=== PATIENT | male | born 1995 | race Caucasian/White ===

== ENCOUNTER 2018-12-01 16:04 | Emergency (ER) | payer OTHER ==
[~2018-12-01] VITALS: Ht 185.4 cm; Wt 102.1 kg
[2018-12-01 16:10] VITALS: BP 138/72
--- NOTE | 2018-12-01 16:10 | NUR ---
ED Nurse Note: PT WALKED IN TO ER TODAY FROM HOME. AOX4. PT C/O NONRADIATING MEDIAL LOWER BACK PAIN, 07/05, DESCRIBED ACHING X 6 DAYS AGO. PT DENIES ANY NUMBNESS OR TINGLING OF EXTREMITIES. CIRCULATION AND SENSATION INTACT. CAP REFILL <3 SECONDS. FULL ROM OF BACK BUT PAIN EXACERBATED BY MOVEMENT.
[2018-12-01] MEDS ORDERED: LOSARTAN POTASS25 MG ORAL (16:20)
[2018-12-01] MEDS ORDERED: ALLOPURINOL100 M1 ORAL (16:20)
--- NOTE | 2018-12-01 16:31 | Emergency Room Report ---
History of Present Illness General Chief Complaint: Lower Back Pain or Injury Source: Patient Present Illness HPI 23-year-old male with no significant past medical history other than hypertension and gout currently controlled with losartan and albuterol as well as indomethacin for acute attacks here complaining of low back pain after lifting heavy furniture at work 6 days ago. She has been sent by work to be evaluated. She denies any fall or injury. Eating the pain intermittently and 5 out of 10 increased when changing position. Denies urinary and bowel incontinence as well as saddle paresthesia. She has been taking Profen with relief for the pain. Denies all other injury, chest pain, SOB, abdominal pain, palpitations, urinary symptoms. Allergies: Coded Allergies: No Known Allergies (Unverified , 12/01/18) Patient History Past Medical History: see triage record Past Surgical History: none Pertinent Family History: none Immunizations: UTD Reviewed Nursing Documentation: PMH: Agreed; PSxH: Agreed Nursing Documentation-PMH Past Medical History: No Stated History Review of Systems All Other Systems: negative except mentioned in HPI Physical Exam Vital Signs Date Time Temp Pulse Resp B/P (MAP) Pulse Ox O2 Delivery O2 Flow Rate FiO2 12/01/18 16:07 98.2 86 18 143/69 95 Room Air Sp02 EP Interpretation: reviewed, normal General Appearance: normal inspection, well appearing, no apparent distress, alert Head: normocephalic, atraumatic Eyes: bilateral eye normal inspection, bilateral eye PERRL ENT: normal ENT inspection, normal pharynx Neck: normal inspection, full range of motion, supple Respiratory: normal inspection, lungs clear, no rhonchi, no retraction, no wheezing Cardiovascular #1: normal inspection, regular rate, rhythm, no edema, no murmur Gastrointestinal: normal inspection, non tender, soft Rectal: deferred Genitourinary: deferred Musculoskeletal: digits/nails normal, gait/station normal, normal range of motion, non-tender, other - muscle spasm over lumbar region. No bony tenderness Neurologic: normal inspection, alert, oriented x3 Psychiatric: normal inspection, judgement/insight normal Skin: normal inspection, normal color, no rash Lymphatic: normal inspection, no adenopathy Medical Decision Making PA Attestation All diagnoses and treatment plans are reviewed and discussed with my supervising physician Dr. Tamayo Diagnostic Impression: Primary Impression: Low back strain Additional Impression: Muscle spasm ER Course 23-year-old male with no significant past medical history other than hypertension and gout currently controlled with losartan and albuterol as well as indomethacin for acute attacks here complaining of low back pain after lifting heavy furniture at work 6 days ago. She has been sent by work to be evaluated. She denies any fall or injury. Eating the pain intermittently and 5 out of 10 increased when changing position. Denies urinary and bowel incontinence as well as saddle paresthesia. She has been taking Profen with relief for the pain. Denies all other injury, chest pain, SOB, abdominal pain, palpitations, urinary symptoms. Ddx considered but are not limited to lumbar strain, muscle spasm, lumbar sprain , lumbar fracture Vital signs: are WNL, pt. is afebrile H&PE are most consistent with versus strain and muscle spasm ORDERS: Robaxin, Voltaren gel ED INTERVENTIONS: None required at this time. DISCHARGE: At this time pt. is stable for d/c to home. Will provide printed patient care instructions, and any necessary prescriptions. Care plan and follow up instructions have been discussed with the patient prior to discharge. PT has been explained that x-ray is not needed as patient did not fall patient agrees and reports he is very taking indomethacin for acute gout and does not want any other anti-inflammatories he is okay with a course of treatment with Robaxin and Voltaren gel paperwork has been filled out for Worker's Comp. Rice currently been explained to the patient and patient is asked to avoid strenuous physical activity Last Vital Signs Date Time Temp Pulse Resp B/P (MAP) Pulse Ox O2 Delivery O2 Flow Rate FiO2 12/01/18 16:10 98.4 82 16 138/72 98 Room Air Disposition: HOME, SELF-CARE Condition: Stable Scripts Diclofenac Sodium (VOLTAREN) 100 Gm Gel..gram. 2 GM TP TID, #100 GM Prov: Gonzalo Carmen 12/01/18 Methocarbamol* (ROBAXIN*) 500 Mg Tablet 500 MG PO BID, #14 TAB 0 Refills Prov: Gonzalo Carmen 12/01/18 Patient Instructions: Lumbosacral Strain, Back Pain, Adult Additional Instructions: take medication as directed, alternating between icing and heating the affected area, avoid strenuous physical activity, avoid lifting heavy objects, follow with her primary care provider if pain continues or if any tingling or numbness. As further imaging may be needed. No imaging at this time as there was no injury or fall. Gonzalo Carmen Dec 01, 2018 16:31
[2018-12-01] MEDS ORDERED: ROBAXIN500 MG PO (16:33)
[2018-12-01] MEDS ORDERED: VOLTAREN100 G1 TP (16:33)
--- NOTE | 2018-12-01 16:46 | NUR ---
ER Nurse Note: PT SITTING PEACEFULLY IN CHAIR IN NAD. AOX4. PRESCRIPTIONS AND DISCHARGE PAPERWORK EXPLAINED TO PT. PT VERBALIZES UNDERSTANDING AND DENIES ANY QUESTIONS AT THIS TIME. PRESCRIPTIONS AND DISCHARGE PAPERWORK GIVEN TO PT AND ID WRISTBAND REMOVED. PT WALKED OUT OF ER WITH STEADY GAIT WITH ALL BELONGINGS.
== END 2018-12-01 16:47 | disposition home or self-care (01) ==
LOC: EMR 16:30
DX: S39.012A Strain of muscle, fascia and tendon of lower back, initial encounter (principal); X50.0XXA Overexertion from strenuous movement or load, initial encounter; Y92.59 Other trade areas as the place of occurrence of the external cause; Y99.0 Civilian activity done for income or pay; M62.830 Muscle spasm of back
CPT/HCPCS: 99283